=== PATIENT | male | born 1975 | race Caucasian/White ===

== ENCOUNTER 2017-04-21 07:19 | Emergency (ER) | payer BC ==
[~2017-04-21] VITALS: Ht 190.5 cm; Wt 108.9 kg
[2017-04-21] MEDS ORDERED: CYCLOBENZAPRINE10 MG PO (07:55)
[2017-04-21] MEDS ORDERED: PREDNISONE50 MG PO (07:55)
== END 2017-04-21 07:54 | disposition home or self-care (01) ==
LOC: ED 07:19
DX: S39.012A Strain of muscle, fascia and tendon of lower back, initial encounter (principal); Z91.040 Latex allergy status; X58.XXXA Exposure to other specified factors, initial encounter; Y93.89 Activity, other specified; Y92.89 Other specified places as the place of occurrence of the external cause; Y99.8 Other external cause status

== ENCOUNTER → 2019-04-26 | Outpatient (CLI) | payer BC ==
[~2019-04-26] MED LIST: CYCLOBENZAPRINE10 MG PO; PREDNISONE50 MG PO
[2019-04-26 12:54] LABS: VITAMIN D, 25-HYDROXY 37.6 ng/mL (30-100)
== END | disposition home or self-care (01) ==
LOC: LAB 10:57
PROVIDERS: Nurse Practitioner Family
DX: E78.5 Hyperlipidemia, unspecified (principal); E83.51 Hypocalcemia

== ENCOUNTER → 2020-05-01 | Outpatient (CLI) | payer BC ==
[2020-05-01 16:45] LABS: PTH INTACT 60.1 pg/mL (18.5-88.0)
== END | disposition home or self-care (01) ==
LOC: LAB 15:09
PROVIDERS: Nurse Practitioner Family
DX: E78.5 Hyperlipidemia, unspecified (principal); E83.51 Hypocalcemia; Z83.3 Family history of diabetes mellitus

== ENCOUNTER → 2020-11-20 | Outpatient (CLI) | payer BC | END | disposition home or self-care (01) | LOC: COVID19 10:02 | PROVIDERS: ATTEND Nurse Practitioner Family | DX: Z20.822 Contact with and (suspected) exposure to COVID-19 (principal) ==

== ENCOUNTER → 2024-07-06 | Outpatient (CLI) | payer BC ==
[2024-07-06 08:08] LABS: BASO % 0.5 % (0.0-1.0); EOS # 0.7 10*3/uL (0.0-0.4); EOS % 11.1 % (1.0-4.0); HEMATOCRIT 45.8 % (42.0-52.0); LYMPH # 2.1 10*3/uL (1.3-4.4); LYMPH % 35.2 % (27.0-41.0); MEAN CORPUSCULAR HGB 29.9 pg (27.0-31.0); MEAN CORPUSCULAR HGB CONC 33.2 g/dl (33.0-37.0); MEAN PLATELET VOLUME 10.1 fl (9.6-12.3); MONO # 0.7 10*3/uL (0.1-1.0); MONO % 12.1 % (3.0-9.0); NEUT # 2.5 10*3/uL (2.3-7.9); NEUT % 40.9 % (47.0-73.0); PLATELET COUNT AUTOMATED 243 10*3/uL (130-400); RED BLOOD COUNT 5.09 10*6/uL (4.50-5.90); RED CELL DISTRI WIDTH 11.7 % (0-14.5); WHITE BLOOD COUNT 6.1 10*3/uL (4.8-10.8)
[2024-07-06 08:57] LABS: ALKALINE PHOSPHATASE 73 U/L (46-116); BUN 12 mg/dl (9-23); CHLORIDE 105 mmol/L (98-107); CHOLESTEROL 162 mg/dL (<200); LDL CHOLESTEROL 76 mg/dL (9-159); POTASSIUM 3.9 mmol/L (3.4-5.1); SGPT/ALT 90 U/L (5-49); TRIGLYCERIDES 102 mg/dl (<150)
== END | disposition home or self-care (01) ==
LOC: LAB 07:52
PROVIDERS: ATTEND Nurse Practitioner Family
DX: E78.5 Hyperlipidemia, unspecified (principal); R73.01 Impaired fasting glucose; E66.8 Other obesity

== ENCOUNTER → 2024-07-09 | Outpatient (CLI) | payer BC | END | disposition home or self-care (01) | LOC: US 00:39 | PROVIDERS: ATTEND Nurse Practitioner Family | DX: K76.0 Fatty (change of) liver, not elsewhere classified (principal); R16.0 Hepatomegaly, not elsewhere classified; R79.89 Other specified abnormal findings of blood chemistry ==

== ENCOUNTER → 2024-08-17 | Outpatient (CLI) | payer BC ==
[2024-08-17 08:10] LABS: BASO # 0.1 10*3/uL (0.0-0.1); BASO % 0.9 % (0.0-1.0); EOS # 0.7 10*3/uL (0.0-0.4); EOS % 13.2 % (1.0-4.0); HEMATOCRIT 46.2 % (42.0-52.0); LYMPH # 1.8 10*3/uL (1.3-4.4); LYMPH % 31.9 % (27.0-41.0); MEAN CELL VOLUME 89.5 fl (80.0-94.0); MEAN CORPUSCULAR HGB 29.5 pg (27.0-31.0); MEAN CORPUSCULAR HGB CONC 32.9 g/dl (33.0-37.0); MEAN PLATELET VOLUME 10.1 fl (9.6-12.3); MONO # 0.7 10*3/uL (0.1-1.0); MONO % 11.7 % (3.0-9.0); NEUT # 2.3 10*3/uL (2.3-7.9); NEUT % 42.1 % (47.0-73.0); PLATELET COUNT AUTOMATED 275 10*3/uL (130-400); RED BLOOD COUNT 5.16 10*6/uL (4.50-5.90); RED CELL DISTRI WIDTH 11.8 % (0-14.5); WHITE BLOOD COUNT 5.5 10*3/uL (4.8-10.8)
[2024-08-17 08:46] LABS: ALKALINE PHOSPHATASE 60 U/L (46-116); BUN 10 mg/dl (9-23); CHLORIDE 103 mmol/L (98-107); CHOLESTEROL 207 mg/dL (<200); LDL CHOLESTEROL 134 mg/dL (9-159); SGPT/ALT 47 U/L (5-49); TOTAL PROTEIN 6.8 gm/dL (6.0-8.0); TRIGLYCERIDES 83 mg/dl (<150)
== END | disposition home or self-care (01) ==
LOC: LAB 02:34
PROVIDERS: ATTEND Nurse Practitioner Family
DX: Z12.5 Encounter for screening for malignant neoplasm of prostate (principal); E78.5 Hyperlipidemia, unspecified; R73.01 Impaired fasting glucose; E66.89 Other obesity not elsewhere classified

== ENCOUNTER → 2025-02-09 | Outpatient (CLI) | payer BC ==
[2025-02-09 07:27] LABS: BASO % 0.5 % (0.0-1.0); EOS # 0.7 10*3/uL (0.0-0.4); EOS % 11.3 % (1.0-4.0); HEMATOCRIT 46.1 % (42.0-52.0); MEAN CELL VOLUME 88.8 fl (80.0-94.0); MEAN CORPUSCULAR HGB 30.1 pg (27.0-31.0); MEAN CORPUSCULAR HGB CONC 33.8 g/dl (33.0-37.0); MEAN PLATELET VOLUME 9.8 fl (9.6-12.3); MONO # 0.7 10*3/uL (0.1-1.0); MONO % 11.7 % (3.0-9.0); NEUT # 2.2 10*3/uL (2.3-7.9); PLATELET COUNT AUTOMATED 249 10*3/uL (130-400); RED BLOOD COUNT 5.19 10*6/uL (4.50-5.90); WHITE BLOOD COUNT 5.9 10*3/uL (4.8-10.8)
[2025-02-09 07:58] LABS: ALKALINE PHOSPHATASE 62 U/L (46-116); BUN 11 mg/dl (9-23); CHLORIDE 102 mmol/L (98-107); CHOLESTEROL 251 mg/dL (<200); LDL CHOLESTEROL 153 mg/dL (9-159); POTASSIUM 3.7 mmol/L (3.4-5.1); SGPT/ALT 37 U/L (5-49); TRIGLYCERIDES 78 mg/dl (<150)
== END | disposition home or self-care (01) ==
LOC: LAB 02:34
PROVIDERS: ATTEND Nurse Practitioner Family
DX: R16.0 Hepatomegaly, not elsewhere classified (principal); R73.01 Impaired fasting glucose; E78.5 Hyperlipidemia, unspecified

== ENCOUNTER → 2025-08-17 | Outpatient (CLI) | payer BC ==
[2025-08-17 07:26] LABS: BASO # 0.0 10*3/uL (0.0-0.1); BASO % 0.4 % (0.0-1.0); EOS # 0.5 10*3/uL (0.0-0.4); EOS % 9.8 % (1.0-4.0); MEAN CELL VOLUME 91.4 fl (80.0-94.0); MEAN CORPUSCULAR HGB 30.4 pg (27.0-31.0); MEAN PLATELET VOLUME 10.2 fl (9.6-12.3); MONO # 0.8 10*3/uL (0.1-1.0); MONO % 16.2 % (3.0-9.0); NEUT # 1.7 10*3/uL (2.3-7.9); NEUT % 34.3 % (47.0-73.0); NUCLEATED RED BLOOD CELL 0.0 % (0.0-0.0); NUCLEATED RED BLOOD CELL 0.0 10*3/uL (0.0-0.0); PLATELET COUNT AUTOMATED 230 10*3/uL (130-400); RED CELL DISTRI WIDTH 11.9 % (0-14.5)
[2025-08-17 07:53] LABS: BUN 10 mg/dl (9-23); LDL CHOLESTEROL 123 mg/dL (9-159); SGPT/ALT 43 U/L (5-49)
== END | disposition home or self-care (01) ==
LOC: LAB 01:33
PROVIDERS: ATTEND Nurse Practitioner Family
DX: J30.2 Other seasonal allergic rhinitis (principal); E78.00 Pure hypercholesterolemia, unspecified; R73.01 Impaired fasting glucose; Z76.89 Persons encountering health services in other specified circumstances; Z12.5 Encounter for screening for malignant neoplasm of prostate